=== PATIENT | female | born 1990 | race Caucasian/White ===

== ENCOUNTER 2021-10-09 17:17 | Emergency (ER) | payer OTHER ==
--- NOTE | 2021-10-09 18:33 | ED ---
Lower Extremity Injury HPI - General Stated Complaint: L foot Wound Time Seen by Provider: 10/09/21 18:21 Source: RN notes reviewed - History of Present Illness Initial Comments: This is a pleasant 31-year-old female who presents to emergency department with Chronic wound to her left foot. Patient states it's been there for about 2 years after she had a reaction to antibiotics. 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 She states has been no change. However she presented [facility] today and was sent here for evaluation of the foot. Any fever or chills. She denies any recent injury. Patient denies any distal paresthesias. Patient is [place] for heroin abuse. She denies injecting site at all. Patient was also sent for STD testing. Patient denying any significant vaginal discharge or symptomatology. However she has had unprotected sex. Patient states she last used this morning.No other complaints No headache, no fever or chills, no changes in vision or hearing, no sore throat or difficulty with speech, no neck pain, no chest pain or shortness of breath, no abdominal pain, no nausea or vomiting, no changes in urination or bowel movements, no numbness or tingling, no skin rashes or lesions. - Related Data Allergies Allergy/AdvReac Type Severity Reaction Status Date / Time clindamycin Allergy Unknown Verified 10/09/21 18:39 Penicillins Allergy Unknown Verified 10/09/21 18:39 Childhood vancomycin Allergy Rash/Hives Verified 10/09/21 18:39 Review of Systems ROS Statement: Those systems with pertinent positive or pertinent negative responses have been documented in the HPI. ROS Other: All systems not noted in ROS Statement are negative. General Exam General appearance: alert, in no apparent distress Head exam: Present: atraumatic, normocephalic, normal inspection Eye exam: Present: normal appearance, PERRL, EOMI. Absent: scleral icterus, conjunctival injection, periorbital swelling ENT exam: Present: normal exam, mucous membranes moist Neck exam: Present: normal inspection, full ROM. Absent: tenderness, meningismus, lymphadenopathy Respiratory exam: Present: normal lung sounds bilaterally. Absent: respiratory distress, wheezes, rales, rhonchi, stridor Cardiovascular Exam: Present: regular rate, normal rhythm, normal heart sounds. Absent: systolic murmur, diastolic murmur, rubs, gallop, clicks GI/Abdominal exam: Present: soft, normal bowel sounds. Absent: distended, tenderness, guarding, rebound, rigid Extremities exam: Present: full ROM, normal capillary refill, other (Patient has a chronic appearing wound to the dorsum of her left foot with serous discharge. No significant erythema. Distal sensation intact. Capillary refill less than 2 seconds. Pedal pulses are intact.). Absent: normal inspection, tenderness, pedal edema, joint swelling, calf tenderness Back exam: Present: normal inspection Neurological exam: Present: alert, oriented X3, CN II-XII intact Psychiatric exam: Present: normal affect, normal mood Skin exam: Present: warm, dry, intact, normal color. Absent: rash Course Vital Signs 10/09/21 18:35 Temperature 98 F Pulse Rate 105 H Respiratory 18 Rate Blood Pressure 138/88 O2 Sat by Pulse 100 Oximetry Medical Decision Making - Medical Decision Making STD testing ordered. The form of cataract many. We'll run a urinalysis. We'll obtain an x-ray of the foot, wound culture of the serous discharge. However this is a chronic wound with no acute change. Patient will likely require referral to wound care. Patient's wound is chronic in nature with no acute insults. I'm going to give the patient follow-up with Dr. Christie for wound care assessment. Gen. care instructions until then. Patient was told to return to the ER for any signs or symptoms worsen. Told to return immediately if any other problems arise. All questions answered. Treatment plan discussed. Patient in agreement Every effort has been made to ensure accuracy of this dictation. However, due to the limitations of electronic medical records and dictation devices, errors in charting still occur. [place] [facility] Dr. Mitchell - Lab Data Lab Results 10/09/21 10/09/21 Range/Units 19:10 19:11 Urine Color Yellow Urine Appearance Clear (Clear) Urine pH 5.5 (5.0-8.0) Ur Specific [place] 1.030 (1.001-1.035) Urine Protein Trace H (Negative) Urine Glucose (UA) Negative (Negative) Urine Ketones Negative (Negative) Urine Blood Moderate H (Negative) Urine Nitrite Negative (Negative) Urine Bilirubin Negative (Negative) Urine Urobilinogen <2.0 (<2.0) mg/dL Ur Leukocyte Esterase Negative (Negative) Urine RBC 1 (0-5) /hpf Urine WBC 1 (0-5) /hpf Ur Squamous Epith Cells 1 (0-4) /hpf Urine Bacteria Occasional H (None) /hpf Hyaline Casts 1 (0-2) /lpf Urine Mucus Occasional H (None) /hpf Urine HCG, Qual Not Detected (Not Detectd) - Radiology Data Radiology results: pending, report reviewed, image reviewed Plain film x-rays read by me reveal no acute pathology. There is no evidence of osteomyelitis or periosteal lifting. No soft tissue gas. No dislocation. No foreign body. Awaiting radiology interpretation. Disposition Clinical Impression: Chronic wound of extremity, Encounter for assessment of STD exposure Narrative: Chronic left foot wound Disposition: HOME SELF-CARE Condition: Stable Instructions (If sedation given, give patient instructions): Chronic Wounds (ED), Chronic Wound Care (ED) Additional Instructions: Make an appointment with the provided wound care physician as directed. Wash the area daily with warm soap and water. Keep covered with a sterile bandage. Follow-up with your regular physician as directed. Return to the ER immediately if any symptoms worsen, new symptoms arise, or any other problems develop. Your STD testing will be pending. Test should be back in 48 hours. Wound cultures also pending Is patient prescribed a controlled substance at d/c from ED?: No Referrals: Richard Christie MD [STAFF PHYSICIAN] - 10/13/21 Time of Disposition: 20:13
[2021-10-09 19:27] LABS: Appearance,Urine Clear (Clear); Bacteria,Urine Occasional /hpf; Bilirubin,Urine Negative (Negative); Blood,Urine Moderate (Negative); Color,Urine Yellow; Glucose,Urine (UA) Negative (Negative); Hyaline Casts,Urine 1 /lpf (0-2); Ketones,Urine Negative (Negative); Leukocyte Esterase,Urine Negative (Negative); Mucus,Urine Occasional /hpf; Nitrite,Urine Negative (Negative); PH, Urine 5.5 (5.0-8.0); Protein,Urine Trace (Negative); RBC,Urine 1 /hpf (0-5); Squamous Epithelial Cell,Urine 1 /hpf (0-4); Urobilinogen,Urine <2.0 mg/dL (<2.0); WBC,Urine 1 /hpf (0-5)
--- NOTE | 2021-10-09 20:21 | XR ---
EXAMINATION TYPE: XR foot complete LT DATE OF EXAM: 10/09/2021 COMPARISON: NONE HISTORY: Foot pain and infection TECHNIQUE: 3 views FINDINGS: Metatarsals are intact. I see no fracture nor dislocation. The toes appear intact. No evide nce of focal bone destruction. There is soft tissue swelling of the dorsum of the forefoot. IMPRESSION: No acute bony abnormality of the left foot. Soft tissue swelling of the dorsum of the for efoot.
[2021-10-09 20:28] VITALS: BP 126/86; PULSE 92; RESP 16; TEMP 97.9
== END 2021-10-09 20:32 | disposition home or self-care (01) ==
LOC: EC 17:17
DX: S91.302A Unspecified open wound, left foot, initial encounter (principal); Z11.2 Encounter for screening for other bacterial diseases; Z88.1 Allergy status to other antibiotic agents; Z88.0 Allergy status to penicillin; X58.XXXA Exposure to other specified factors, initial encounter
CPT/HCPCS: 81001; 81025; 87070; 87077; 87186; 87205; 87491; 87591; 99283